=== PATIENT | male | born 1955 | race Caucasian/White ===

== ENCOUNTER 2017-11-01 07:09 | Day surgery (SDC) | payer OTHER ==
[~2017-11-01 07:09] MED LIST: ATIVAN2 M1 PO; DALMANE30 MG PO; FERRO-TIME325 MG PO; FOLIC ACID1 MG PO; GABAPENTIN600 MG PO; LOSARTAN POTASS50 MG PO; PRILOSEC OTC20 MG PO; SINGULAIR10 MG PO; ZANTAC300 MG PO; ZYLOPRIM300 MG PO
== END 2017-11-01 15:00 | disposition home or self-care (01) ==
LOC: CIR.AMB 07:09
DX: C65.1 Malignant neoplasm of right renal pelvis (principal); C67.9 Malignant neoplasm of bladder, unspecified